=== PATIENT | female | born 1990 | race Hispanic/Latino ===

== ENCOUNTER 2017-07-07 11:43 | Emergency (ER) | payer OTHER ==
[2017-07-07] MEDS ORDERED: ACETAMINOPHEN EXTRA STRENGTH 500 MG TABLET ONE (11:56)
[2017-07-07] MEDS ORDERED: DIAZEPAM 5 MG TABLET ONE (11:56)
[2017-07-07 12:15] LABS: APPEARANCE,URINE Cloudy (CLEAR); BILIRUBIN,URINE Negative (NEGATIVE); COLOR,URINE Yellow (YELLOW); GLUCOSE, URINE (UA) Negative (NEGATIVE); KETONES,URINE Negative (NEGATIVE); LEUKOCYTE ESTERASE ,URINE Small (NEGATIVE); NITRATE,URINE Negative (NEGATIVE); OCCULT BLOOD,URINE Moderate (NEGATIVE); PROTEIN,URINE Negative (NEGATIVE)
[2017-07-07 12:20] LABS: BACTERIA,URINE Few /HPF (None Seen); RBC,URINE 0-1 /HPF (0-1); SQUAMOUS EPITHELIAL CELL,UR Few /LPF (0-2); WBC,URINE 0-1 /HPF (0-1)
[2017-07-07 12:25] LABS: HCG,QUAL RESULT NEGATIVE (NEGATIVE)
[2017-07-07] MEDS ORDERED: SODIUM CHLORIDE 0.9% 1000ML 1,000 ML IV ONE (12:34)
[2017-07-07 12:42] LABS: BASOPHILS % (AUTO) 0.5 % (0.0-5.0); EOSINOPHILS % (AUTO) 1.6 % (0.0-8.0); HEMATOCRIT 42.8 % (36-48); LYMPHOCYTES % (AUTO) 26.9 % (21.0-51.0); MEAN CORPUSCULAR HEMOGLOBIN 30.1 pg (27.0-33.0); MEAN CORPUSCULAR HGB CONC 34.4 g/dL (32.0-36.0); MEAN CORPUSCULAR VOLUME 87.4 fL (79-99); MONOCYTES % (AUTO) 6.6 % (3.0-13.0); NEUTROPHILS % (AUTO) 64.4 % (40.0-77.0); PLATELET COUNT (AUTO) 261 K/uL (130-400); WHITE BLOOD COUNT (AUTO) 11.1 K/uL (4.8-10.8)
[2017-07-07 13:03] LABS: CREATININE 0.7 mg/dL (0.5-1.5); POTASSIUM 3.6 mmol/L (3.5-5.1)
[2017-07-07 13:07] LABS: ALBUMIN 4.2 g/dL (3.5-5.0); BILIRUBIN,TOTAL 0.3 mg/dL (0.2-1.0); TOTAL PROTEIN, SERUM 7.8 g/dL (6.0-8.3)
== END 2017-07-07 14:28 | disposition home or self-care (01) ==
LOC: EDH 11:43
DX: M54.6 Pain in thoracic spine (principal); Z88.0 Allergy status to penicillin; Z72.0 Tobacco use
CPT/HCPCS: 36415; 80053; 81001; 81025; 85025; 96360; 99284; J7030

== ENCOUNTER 2022-08-29 17:17 | Emergency (ER) | payer OTHER ==
[~2022-08-29] VITALS: Ht 167.6 cm; Wt 72.6 kg
[2022-08-29 17:33] VITALS: BP 160/58
[2022-08-29] MEDS ORDERED: MUPI22OI2 TP (19:35)
[2022-08-29] MEDS ORDERED: NAPR500T6 PO (19:35)
== END 2022-08-29 19:50 | disposition home or self-care (01) ==
LOC: EDH 17:17
DX: L60.0 Ingrowing nail (principal)
CPT/HCPCS: 11750

== ENCOUNTER 2023-04-24 21:47 | Emergency (ER) | payer OTHER ==
[~2023-04-24] VITALS: Ht 167.6 cm; Wt 88.0 kg
[~2023-04-24 21:47] MED LIST: IBUP-2070 PO; MUPI22OI2 TP; NAPR500T6 PO; SULF1TAB42 PO
[2023-04-24] MEDS ORDERED: IBUP-2070 PO (22:35)
[2023-04-24] MEDS ORDERED: AZIT250T9 PO (22:35)
[2023-04-24 22:41] VITALS: BP 134/70; PULSE 87; RESP 20; O2SAT 96
[2023-04-24] MEDS ORDERED: HYDROCODONE/ACETAMINOPHEN 5/325 MG TAB PO ONE (23:00)
== END 2023-04-24 23:12 | disposition home or self-care (01) ==
LOC: EDH 21:47
DX: H66.92 Otitis media, unspecified, left ear (principal); F41.9 Anxiety disorder, unspecified; Z79.899 Other long term (current) drug therapy; Z88.0 Allergy status to penicillin

== ENCOUNTER 2025-02-02 23:27 | Emergency (ER) | payer SELFPAY ==
[~2025-02-02] VITALS: Ht 167.6 cm; Wt 81.6 kg
[~2025-02-02 23:27] MED LIST changes: +AZIT250T9 PO; +CEFP200T14 PO; +IBUP-1492 PO; -IBUP-2070 PO; +NAPR-1506 PO; -NAPR500T6 PO
--- NOTE | 2025-02-03 00:55 | ERN ---
ED Note History of Present Illness Stated Complaint: FALL, LEFT FOOT PAIN Chief Complaint: FOOT INJURY/PAIN Time Seen by MD: 23:30 Time Seen by Midlevel: 23:31 Dictation: 34-year-old female presents to the emergency department due to reported having sustained an injury to the left foot. She states that she was walking out of a restaurant when she misstepped and injured her left foot. At this time, she rates her level of discomfort as a 6/10. Patient states the pain is primarily upon palpation or bearing weight on the foot. Upon initial evaluation, the patient presents with a normal neurovascular examination. Allergies: Coded Allergies: Penicillins (Unverified Allergy, Unknown, 09/30/22) Emergency Care CLIENT SERVICE AND CONSULTING MANAGER: None Home Meds Active Scripts Cefpodoxime Proxetil (Cefpodoxime Proxetil) 200 Mg Tablet, 200 MG PO BID for 10 Days, #20 TAB Prov:DER ROMO DO 10/26/23 Azithromycin (Azithromycin) 250 Mg Tablet, 250 MG PO 2 on day 1 then te for 5 Days, #6 TAB 0 Refills Prov:FELIPE LYNCH NP 04/24/23 Ibuprofen (Ibuprofen) 600 Mg Tablet, 600 MG PO Q6H PRN for PAIN, #15 TAB 0 Refills Prov:FELIPE LYNCH NP 04/24/23 Ibuprofen (Ibuprofen) 600 Mg Tablet, 600 MG PO Q6H PRN for PAIN, #15 TAB 0 Refills Prov:NURIA ACEVEDO 03/09/23 Sulfamethoxazole/Trimethoprim (Bactrim Ds Tablet) 800 Mg-160 Mg Tablet, 1 TAB PO BID for urinary tract infection for 7 Days, #14 TAB 0 Refills Prov:NURIA ACEVEDO 03/09/23 Naproxen (Naproxen) 500 Mg Tablet., 500 MG PO BIDPC, #15 TAB Prov:MIRZA FOSTER 08/29/22 Mupirocin (Mupirocin Ointment) 22 Gm Oint, 22 GM TP TID, #1 TUBE Prov:MIRZA FOSTERP 08/29/22 Past Medical History Past Medical History: Anxiety Surgical History: None LMP: Jan 19, 2025 RN Note Reviewed/Agreed w/PFSH: Yes Review of System Dictation MS/Extremity: Left foot pain Initial Vital Sign VS Vital Signs Date Time Temp Pulse Resp B/P (MAP) Pulse Ox O2 Delivery O2 Flow Rate FiO2 02/02/25 23:29 97.3 101 20 135/91 100 Room Air 02/02/25 23:42 0 21 Physical Exam Dictation General: awake, alert, NAD Head/Face: Normocephalic, atraumatic Eyes: PERRL, EOMI ENT: Oral mucosa moist Neck: Trachea midline, supple Cardiovascular: RRR, no edema Respiratory: Symmetrical, non-labored Abdomen: Soft, non-tender, non-distended, no guarding. Skin: Warm, dry, good turgor, no rash MS/Extremity: Pulses equal, no cyanosis, neurovascular intact, painful range of motion and tenderness to the dorsal aspect of the left foot Neuro: COAx4, GCS 15, steady gait, Psych: Normal behavior, mood, and affect normal Results (Laboratory/Radiology) X-RAY Comment: Three-view x-ray of the left foot with no cortical anomalies or deformities as interpreted by me. ED Course ED Course Orders Procedure Category Date Status Time Foot Comp 3+Vws Lt RAD 02/02/25 Taken 23:34 Acetaminophen 500mg PHA 02/03/25 Complete Tab (Tylenol 500mg T 00:00 Current Medications Medications (Trade) Dose Ordered Sig/Noy Route PRN Reason Start Time Stop Time Status Last Admin Dose Admin Acetaminophen (TYLenol 500MG TAB) 1,000 mg ONCE ONCE PO 02/03/25 00:00 02/03/25 00:01 DC 02/02/25 23:56 Vital Signs Date Time Temp Pulse Resp B/P (MAP) Pulse Ox O2 Delivery O2 Flow Rate FiO2 02/02/25 23:42 98.1 98 18 133/90 97 Room Air* 0 21 02/02/25 23:29 97.3 101 20 135/91 100 Room Air Medical Decision Making MDM MDM: Differential diagnosis: Left foot sprain, metatarsal fracture, left foot contusion. Rationale: Tests considered and ordered secondary to shared decision making include: Previous outside records reviewed: Old ER visits. Risk of complication and/or morbidity or mortality of patient management: None Medications-Per medication reconciliation Need for hospitalization: Patient does not meet criteria for hospitalization. Need for emergency major/minor surgery: No There are no social concerns with this patient. Prescription drug management Prescriptions will include symptomatic care Patient's prior external medical records from other ER visits were reviewed by me as indicated. Prior testing and results from previous visits were reviewed. Prior tests were taken into account with medical decision making and resource utilization, independent historian/historians were used to obtain complete medical history. I independently interpreted the test that were performed, results were reviewed by me and considered findings on radiology if ordered. Medical management and examination interpretation discussions were had by me with other qualified healthcare professionals as indicated for the patient's care. DX & DISP Disposition: Discharge Departure Impression: Primary Impression: Sprain of left foot Condition: Stable Referrals: SELF,REFERRAL (PCP) Time of Disposition: 00:54 WILL MORRISON Feb 03, 2025 00:55
[2025-02-03 01:05] VITALS: BP 135/87; PULSE 90; RESP 18; TEMP 98.4; O2SAT 98
--- NOTE | 2025-02-03 01:26 | HMCIMG ---
EXAM: CR Left Foot, 3 views. CLINICAL HISTORY: Fall. Pain. COMPARISON: None provided. FINDINGS: No acute fracture or aggressively appearing osseous lesion. Prominent plantar and posterior calcaneal enthesophytes. Incidental type I accessory navicular bone. Joint spaces are within normal limits. The soft tissues are unremarkable. IMPRESSION: No acute osseous abnormality. /[place]upp
== END 2025-02-03 01:24 | disposition home or self-care (01) ==
LOC: EDH 23:27
DX: S93.602A Unspecified sprain of left foot, initial encounter (principal); F41.9 Anxiety disorder, unspecified; Z88.0 Allergy status to penicillin; W18.40XA Slipping, tripping and stumbling without falling, unspecified, initial encounter; Y93.01 Activity, walking, marching and hiking; Y92.511 Restaurant or cafe as the place of occurrence of the external cause; Y99.8 Other external cause status
CPT/HCPCS: 73630; 99283